=== PATIENT | female | born 1960 | race African-American/Black ===

== ENCOUNTER 2024-08-20 08:59 | Emergency (ER) | payer OTHER ==
[~2024-08-20] VITALS: Ht 167.6 cm; Wt 85.0 kg
[2024-08-20 08:59] VITALS: O2SAT 100
[2024-08-20 09:16] VITALS: O2SAT 99
[2024-08-20 09:49] LABS: POTASSIUM 3.5 mEq/L (3.5-5.1)
[2024-08-20 09:51] LABS: CALCIUM 10.5 mg/dL (8.7-10.4)
[2024-08-20 09:56] LABS: CREATININE 1.5 mg/dL (0.6-1.0)
[2024-08-20 10:03] LABS: BASOPHILS % 0.4 % (0.0-2.0); EOSINOPHILS % 1.4 % (0.0-5.0); HEMATOCRIT. 44.7 % (36.0-48.0); HEMOGLOBIN. 14.1 g/dL (12.0-16.0); LYMPHOCYTES % 45.1 % (20.0-50.0); MEAN CORPUSCULAR HEMOGLOBIN 26.2 pg (28.0-32.0); MEAN CORPUSCULAR HGB CONC 31.5 g/dL (31.0-37.0); MEAN PLATELET VOLUME 8.4 fl (7.4-10.4); MONOCYTES % 9.6 % (2.0-8.0); NEUTROPHILS % 43.5 % (40.0-76.0); PLATELET 217 x1000/uL (130-400); RED BLOOD CELL COUNT 5.38 mill/uL (4.2-5.4); RED CELL DISTRIBUTION WIDTH 16.3 % (11.6-14.6)
[2024-08-20 10:42] VITALS: TEMP 98.2
[2024-08-20] MEDS: ACETAMINOPHEN 325MG TABLET PO ONE (10:42)
[2024-08-20 12:10] LABS: CLARITY URINE CLEAR (CLEAR); COLOR URINE YELLOW (YELLOW); GLUCOSE URINE NEGATIVE (NEGATIVE); KETONES URINE TRACE (NEGATIVE); LEUKOCYTE ESTERASE URINE NEGATIVE (NEGATIVE); NITRITE URINE NEGATIVE (NEGATIVE); OCCULT BLOOD URINE TRACE (NEGATIVE); PROTEIN URINE 4+ (NEGATIVE); SPECIFIC GRAVITY URINE 1.019 (1.005-1.030); UROBILINOGEN URINE 0.2 E.U./dL (0.2-1.0)
[2024-08-20 12:45] VITALS: BP 142/91; PULSE 87; RESP 18
[2024-08-20 13:16] LABS: BACTERIA URINE FEW; RBC URINE 0-2 /hpf (0-2); YEAST URINE RARE
[2024-08-20 13:17] LABS: SQUAMOUS EPITHELIAL CELL URINE FEW /lpf (RARE/1+)
== END 2024-08-20 12:56 | disposition home or self-care (01) ==
LOC: ER 08:59
DX: R51.9 Headache, unspecified (principal); E11.9 Type 2 diabetes mellitus without complications; E78.00 Pure hypercholesterolemia, unspecified; I10 Essential (primary) hypertension; K21.9 Gastro-esophageal reflux disease without esophagitis; M19.90 Unspecified osteoarthritis, unspecified site; Z88.5 Allergy status to narcotic agent; Z90.49 Acquired absence of other specified parts of digestive tract
CPT/HCPCS: 36415; 80048; 81003; 85025; 99284

== ENCOUNTER 2025-06-13 17:36 | Emergency (ER) | payer OTHER ==
[~2025-06-13] VITALS: Ht 162.6 cm; Wt 83.0 kg
[2025-06-13 17:41] VITALS: O2SAT 100
[2025-06-13] MEDS: ACETAMINOPHEN 500MG TABLET PO ONE (20:29)
[2025-06-13] MEDS ORDERED: ACET-2708 MT (21:01)
[2025-06-13 21:15] VITALS: BP 165/79; PULSE 83; RESP 16; TEMP 36.6; O2SAT 100
== END 2025-06-13 21:16 | disposition home or self-care (01) ==
LOC: ER 17:36
DX: S09.90XA Unspecified injury of head, initial encounter (principal); E11.22 Type 2 diabetes mellitus with diabetic chronic kidney disease; E78.00 Pure hypercholesterolemia, unspecified; I12.9 Hypertensive chronic kidney disease with stage 1 through stage 4 chronic kidney disease, or unspecified chronic kidney disease; M19.90 Unspecified osteoarthritis, unspecified site; N18.9 Chronic kidney disease, unspecified; Z90.49 Acquired absence of other specified parts of digestive tract; Z88.5 Allergy status to narcotic agent; W22.8XXA Striking against or struck by other objects, initial encounter; Y93.89 Activity, other specified; Y92.89 Other specified places as the place of occurrence of the external cause; Y99.8 Other external cause status
CPT/HCPCS: 99284